=== PATIENT | female | born 1980 | race Two or more races ===

== ENCOUNTER 2017-06-28 17:01 | Emergency (ER) | payer SELFPAY ==
[2017-06-28 18:09] VITALS: BP 112/74
--- NOTE | 2017-06-28 18:27 | UC ---
Abdominal Pain Female HPI - HPI Summary HPI Summary: 36 year old female with abdominal complaint.c/o nausea and middle abd. cramping since yesterday and has continued into today. She states no diarrhea and just vomitted for the first time approx 10 min ago. 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 Denies fever. Able to drink fluids but no appetite for solids today. Did vomit once and no blood in vomit. Has had exposure to illness. No recent travel or antibiotics. [ End ] - History of Current Complaint Chief Complaint: UCGI Stated Complaint: NAUSEA,ABD CRAMPING 2 DAYS Time Seen by Provider: 06/28/17 18:12 Hx Obtained From: Patient Hx Last Menstrual Period: 06/01/17 ?: No Onset/Duration: Gradual Onset Severity Initially: Mild Severity Currently: Mild Radiates: No Character: Aching Aggravating Factor(s): Nothing Alleviating Factor(s): Nothing Allergies/Adverse Reactions: Allergies Allergy/AdvReac Type Severity Reaction Status Date / Time No Known Allergies Allergy Verified 06/28/17 18:09 PMH/Surg Hx/FS Hx/Imm Hx Previously Healthy: Yes - Surgical History Surgical History: None - Family History Known Family History: Negative: Cardiac Disease - Social History Occupation: Employed Full-time - Teacher Alcohol Use: Rare Substance Use Type: None Smoking Status (MU): Never Smoked Tobacco Review of Systems Gastrointestinal: Abdominal Pain, Vomiting, Nausea All Other Systems Reviewed And Are Negative: Yes Physical Exam Triage Information Reviewed: Yes Appearance: Well-Appearing, No Pain Distress, Well-Nourished Vital Signs: Initial Vital Signs Temp 98.6 F 06/28/17 18:01 Pulse 90 06/28/17 18:01 Resp 16 06/28/17 18:01 BP 112/74 06/28/17 18:01 Pulse Ox 100 06/28/17 18:01 Vital Signs Reviewed: Yes Eye Exam: Normal ENT Exam: Normal Dental Exam: Normal Neck exam: Normal Neck: Positive: 1 Respiratory Exam: Normal Cardiovascular Exam: Normal Abdominal Exam: Normal Abdomen Description: Positive: Other: - mild tenderness to palpation mid epigastric. no acute abdomen. no RLQ or LLQ tenderness. No CVA tenderness. No rebound tednerness.. Negative: CVA Tenderness (R), CVA Tenderness (L), Distended, Guarding Bowel Sounds: Positive: Present Musculoskeletal Exam: Normal Neurological Exam: Normal Psychological Exam: Normal Skin Exam: Normal Abd Pain Female Course/Dx - Course Course Of Treatment: BRAT diet, anti nausea meds, if Sx worsen then go to ED. No acute abdomen. Appears to be viral at this time in nature. - Differential Dx/Diagnosis Provider Diagnoses: Gastroenteritis Discharge - Discharge Plan Condition: Good Disposition: HOME Prescriptions: Ondansetron ODT TAB* [Zofran 4 MG Odt TAB*] 4 mg PO Q6H PRN #15 tab.odt PRN Reason: Nausea Patient Education Materials: Gastroenteritis (ED) Forms: *Work Release Additional Instructions: Follow up with a Primary Care physician in 3-4 days if there are any concerns.
== END 2017-06-28 19:06 | disposition home or self-care (01) ==
LOC: UCCORT 17:01
DX: K52.9 Noninfective gastroenteritis and colitis, unspecified (principal)
CPT/HCPCS: 99202; G0463

== ENCOUNTER 2017-11-02 11:40 | Emergency (ER) | payer BC ==
[2017-11-02 12:44] VITALS: BP 108/69
--- NOTE | 2017-11-02 13:22 | UC ---
Throat Pain/Nasal Rudy HPI - HPI Summary HPI Summary: 36F presents with sinus discharge for over a week. She states she has been having worsen sinus pressure. She admits to fever, body aches. She has been having a dry cough. She denies any sore throat. She has been using saline rinses and it has not been helping. She admits to a headache due to the sinus pressure. She admits to pressure behind her ears. - History of Current Complaint Chief Complaint: UCGeneralIllness Stated Complaint: HEADACHE,COUGH Time Seen by Provider: 11/02/17 12:56 Hx Last Menstrual Period: 10/28/17 Pain Intensity: 0 - Allergies/Home Medications Allergies/Adverse Reactions: Allergies Allergy/AdvReac Type Severity Reaction Status Date / Time No Known Allergies Allergy Verified 11/02/17 12:44 Home Medications: Home Medications Homeopathic Products [Zicam Cold Remedy] 1 tab PO ONCE 11/02/17 [History Confirmed 11/02/17] PMH/Surg Hx/FS Hx/Imm Hx Endocrine History: Other Other Endocrine History: no DM Respiratory History: Other Other Respiratory History: no asthma - Surgical History Surgical History: None - Family History Known Family History: Negative: Cardiac Disease - Social History Alcohol Use: None Substance Use Type: None Smoking Status (MU): Never Smoked Tobacco Review of Systems Constitutional: Fever ENT: Sinus Congestion, Sinus Pain/Tenderness Respiratory: Cough All Other Systems Reviewed And Are Negative: Yes Physical Exam Triage Information Reviewed: Yes Appearance: Well-Appearing Vital Signs: Initial Vital Signs Temp 98 F 11/02/17 12:40 Pulse 65 11/02/17 12:40 Resp 18 11/02/17 12:40 BP 108/69 11/02/17 12:40 Pulse Ox 100 11/02/17 12:40 Vital Signs Reviewed: Yes Eyes: Positive: Conjunctiva Clear ENT: Positive: Normal ENT inspection, Pharynx normal, Nasal congestion, TMs normal, Sinus tenderness Neck: Positive: Supple, Nontender, No Lymphadenopathy Respiratory: Positive: Lungs clear, Normal breath sounds Cardiovascular: Positive: RRR Abdomen Description: Positive: Nontender, Soft Bowel Sounds: Positive: Present Musculoskeletal Exam: Normal Neurological Exam: Normal Psychological Exam: Normal Skin Exam: Normal Throat Pain/Nasal Course/Dx - Course Course Of Treatment: 36F presents with sinus discharge for over a week. She states she has been having worsen sinus pressure. She admits to fever, body aches. She has been having a dry cough. She denies any sore throat. She has been using saline rinses and it has not been helping. She admits to a headache due to the sinus pressure. She admits to pressure behind her ears. on exam sinus tenderness. lungs CTA. flu neg. will treat as sinus infection as has been longer than a week with no improvement. will treat with augmentin. patient understand and agrees with plan. - Differential Dx/Diagnosis Differential Diagnosis/HQI/PQRI: Pharyngitis, Sinusitis, URI Provider Diagnoses: sinusitis Discharge - Discharge Plan Condition: Good Disposition: HOME Prescriptions: Amoxicillin/Clavulanate TAB* [Augmentin TAB 500 mg*] 500 mg PO BID #20 tab Patient Education Materials: Sinusitis (ED) Referrals: [facility] REFERRAL [Outside] Additional Instructions: Take antibiotic twice a day for 10 days Use saline spray in nose as much as needed Use humidifier in room or can use warm water in bowls Use OTC decongestions Follow up with primary care physician within a week for no improvement Return to ED with any new or worsening symptoms
== END 2017-11-02 13:43 | disposition home or self-care (01) ==
LOC: UCCORT 11:40
DX: J32.9 Chronic sinusitis, unspecified (principal)
CPT/HCPCS: 87502; 99212; G0463

== ENCOUNTER 2019-11-14 13:43 | Emergency (ER) | payer BC ==
[2019-11-14 14:05] VITALS: BP 97/63
--- NOTE | 2019-11-14 14:20 | UC ---
Hand/Wrist HPI - HPI Summary HPI Summary: Pt presents with right 5th finger pain X 2 weeks. Pt states that she slipped and fell from standing height. - History Of Current Complaint Chief Complaint: UCUpperExtremity Stated Complaint: RT HAND INJURY Time Seen by Provider: 11/14/19 13:59 Hx Obtained From: Patient Hx Last Menstrual Period: 11/14/18 ?: No Onset/Duration: Sudden Onset, Lasting Weeks, Still Present Severity Initially: Moderate Severity Currently: Moderate Pain Intensity: 5 Character Of Pain: Dull, Aching, Stiffness Aggravating Factor(s): Movement Alleviating Factor(s): Rest Associated Signs And Symptoms: Positive: Swelling Related History: Dominant Hand Right - Risk Factors Compartment Syndrome Risk Factors: Pain - Allergies/Home Medications Allergies/Adverse Reactions: Allergies Allergy/AdvReac Type Severity Reaction Status Date / Time Pork/Porcine Containing Allergy Severe hives and Verified 11/14/19 13:55 Products swelling Home Medications: Home Medications Copper (Iud) [Paragard IUD] 1 unit IU 11/14/19 [History] PMH/Surg Hx/FS Hx/Imm Hx Previously Healthy: Yes - Surgical History Surgical History: None - Family History Known Family History: Positive: Diabetes Negative: Cardiac Disease - Social History Occupation: Employed Full-time Lives: With Family Alcohol Use: None Substance Use Type: None Smoking Status (MU): Never Smoked Tobacco Have You Smoked in the Last Year: No Review of Systems All Other Systems Reviewed And Are Negative: Yes Constitutional: Positive: Negative Skin: Positive: Negative Eyes: Positive: Negative ENT: Positive: Negative Respiratory: Positive: Negative Cardiovascular: Positive: Negative Gastrointestinal: Positive: Negative Genitourinary: Positive: Negative Motor: Positive: Decreased ROM - right 5th finger Musculoskeletal: Positive: Arthralgia, Decreased ROM, Edema, Myalgia Neurological: Positive: Negative Psychological: Positive: Negative Is Patient Immunocompromised?: No Physical Exam Appearance: Well-Appearing Vital Signs: Initial Vital Signs Temp 98.1 F 11/14/19 13:56 Pulse 61 11/14/19 13:56 Resp 16 11/14/19 13:56 BP 97/63 11/14/19 13:56 Pulse Ox 99 11/14/19 13:56 Vital Signs Reviewed: Yes Eye Exam: Normal ENT: Positive: Hearing grossly normal Dental Exam: Normal Neck exam: Normal Respiratory: Positive: No respiratory distress Musculoskeletal: Positive: ROM Limited @ - right 5th finger, Edema @ - right 5th finger Neurological Exam: Normal Psychological Exam: Normal Skin Exam: Normal Diagnostics - Radiology No standard instances Radiology Interpretation Completed By: Radiologist - Vp [employer] And Crm: Luis Gambino Daniel, ([id number]) Maintenance Carpenter: BOB (NUANCE) Report Date: 11/14/2019 14:22:00 Report Status: Final Start of Report Content ====== Patient Name: ZENON CONNORS Medical Record#: [id number] Ordering Physician: Nikia Garber BOX TENDER Acct.#: [id number] : 1980 Age: 39 Sex: F Location: [facility] Exam Date: 11/14/19 141 ADM Status: REG ER Order Information: FINGER RIGHT SMALL Accession Number: [id number] CPT: 89470 HISTORY: fall from standing . COMPARISONS: None relevant available at the time of dictation. VIEWS: 3, Frontal, lateral, and oblique views of the fifth digit of the right hand FINDINGS: BONE DENSITY: Normal. BONES: There is a nondisplaced fracture of the base of the middle phalanx of the fifth digit with articular extension. JOINTS: There is no arthropathy. ALIGNMENT: There is no dislocation. SOFT TISSUES: There is soft tissue swelling. OTHER FINDINGS: None. IMPRESSION: NONDISPLACED FRACTURE OF THE BASE OF THE MIDDLE PHALANX OF THE FIFTH DIGIT WITH ARTICULAR EXTENSION. <Electronically signed by Luis Gambino MD in OV> 11/14 1419 Dictated By: Luis Gambino MD Dictated Date/Time: 11/14/191417 Transcribed Date/Time: 11/14/191417 Copy to: CC:Nikia Garber BOX TENDER; Shruthi Manzano MD; No Primary Care Phys,NOPCP Imaging - [facility] Imaging - [facility] Imaging - [facility] [id number] [place], [place] [id number] [place] [id number] [place] [phone] ph [phone]) ph ([phone]) ph ([phone]) End of Report Content Hand/Wrist Course/Dx - Differential Dx/Diagnosis Differential Diagnosis/HQI/PQRI: Fracture Provider Diagnosis: Finger fracture, right Discharge ED - Sign-Out/Discharge Documenting (check all that apply): Patient Departure All imaging exams completed and their final reports reviewed: Yes - Discharge Plan Condition: Stable Disposition: HOME Patient Education Materials: Finger Fracture (ED), Safe Use of NSAIDs (ED) Referrals: No Primary Care Phys,NOPCP [Primary Care Provider] - [facility] [facility]FERR[facility] [Outside] - If Needed Omar Henriquez MD [Medical Doctor] - As Soon As Possible - Billing Disposition and Condition Condition: STABLE Disposition: Home
== END 2019-11-14 14:40 | disposition home or self-care (01) ==
LOC: UCCORT 13:43
DX: S62.656A Nondisplaced fracture of middle phalanx of right little finger, initial encounter for closed fracture (principal); Z91.018 Allergy to other foods; W01.0XXA Fall on same level from slipping, tripping and stumbling without subsequent striking against object, initial encounter; Y92.9 Unspecified place or not applicable
CPT/HCPCS: 73140; 99212; G0463